=== PATIENT | male | born 2000 | race Caucasian/White ===

== ENCOUNTER 2021-05-01 23:40 | Emergency (ER) | payer OTHER ==
[~2021-05-01] VITALS: Ht 175.3 cm; Wt 65.8 kg
[2021-05-01 23:43] VITALS: BP 143/73
--- NOTE | 2021-05-01 23:43 | NUR ---
TO BED AMBULATORY
--- NOTE | 2021-05-01 23:50 | NUR ---
PT BIB SELF FOR C/O ABDOMINAL PAIN X 4 DAYS S/P SMOKING CANABIS. PT REPORTS HX OF CANABINOID HYPEREMESIS SYNDROME 2 YEARS AGO. PT REPORTS "THIS ALWAYS HAPPENS WHEN I SMOKE, MY PARENTS JUST WANTED ME TO GET CHECKED OUT." PT REPORTS LAST SMOKING ON 04/27, STATING HIS SYMPTOMS USUALLY VARY FROM DAYS TO WEEKS. PT REPORTS HE WAS ABLE TO TOLERATE BANANAS AND WATER TODAY. DENIES DIARRHEA, FEVER, CHILLS, CP, SOB. PT REPORTS TAKING TUMS AND MELATONIN AT NIGHT TO HELP SX MANAGEMENT. PT REPORTS FEELING "GAS" AT NIGHT, STATING HE BURPS A LOT. SEE COMPLETE ASSESSMENT FOR FURTHER DETAILS. MED HX: ANXIETY, CANABINOID HYPEREMESIS SYNDROME ALLERGIES: NKA
--- NOTE | 2021-05-02 00:01 | NUR ---
ERMD AT BEDSIDE.
[2021-05-02] MEDS ORDERED: METO-486 PO (00:07)
[2021-05-02] MEDS ORDERED: ONDA4TAB PO (00:07)
[2021-05-02 00:17] VITALS: BP 143/73
--- NOTE | 2021-05-02 00:17 | NUR ---
Patient discharged with v/s stable. Written and verbal after care instructions given and explained. Patient alert, oriented and verbalized understanding of instructions. Ambulatory with steady gait. All questions addressed prior to discharge. ID band removed. Patient advised to follow up with PMD. Rx of REGLAN AND ZOFRAN given. Patient educated on indication of medication including possible reaction and side effects. Opportunity to ask questions provided and answered.
== END 2021-05-02 00:17 | disposition home or self-care (01) ==
LOC: MED 23:40
DX: F12.188 Cannabis abuse with other cannabis-induced disorder (principal); F41.9 Anxiety disorder, unspecified
CPT/HCPCS: 99283